=== PATIENT | male | born 1960 | race African-American/Black ===

== ENCOUNTER 2019-07-01 16:42 | Emergency (ER) | payer OTHER, SELFPAY ==
--- NOTE | 2019-07-01 18:19 | RAD ---
KUB INDICATION: Constipation COMPARISON: CT the chest, abdomen and pelvis dated February 23, 2015 FINDINGS: Bowel gas: Nonspecific but without overt appearance of obstruction. Lung bases: Clear. Additional findings: There are small phleboliths within the lower pelvis. Osseous structures: There is mild spondylosis of the lumbar spine IMPRESSION: 1. No acute abnormality.
[2019-07-01 18:38] LABS: #Eosinphils 0.2 thou/uL (0.0-0.7); #Lymphocytes 1.3 thou/uL (1.20-3.40); #Monocytes 0.5 thou/uL (0.11-0.59); #Neutrophils 2.6 thou/uL (1.40-6.50); %Basophils 0.4 % (0.0-1.0); %Eosinophils 4.6 % (0.0-10.0); %Lymphocytes 28.9 % (21.0-51.0); %Monocytes 9.8 % (0.0-10.0); %Neutrophils 56.4 % (42.0-75.0); Hemoglobin 16.4 g/dL (14.0-18.0); Mean Corpuscular HGB CONC 33.2 g/dL (32.0-36.0); Mean Corpuscular Hemoglobin 32.1 pg (27.0-31.0); Mean Corpuscular Volume 96.7 fL (78.0-98.0); Mean Platelet Volume 8.6 fL (7.4-10.4); Platelet Count 184 thou/uL (130-400); RBC Distribution Width 12.5 % (11.5-14.5); Red Blood Cell (RBC) Count 5.13 mill/uL (4.70-6.10); White Blood Cell (WBC) Count 4.6 thou/uL (4.8-10.8)
[2019-07-01 19:03] LABS: ALT (SGPT) 20 U/L (8-55); AST (SGOT) 28 U/L (5-34); Albumin 4.4 g/dL (3.5-5.0); Alkaline Phosphatase 108 U/L (40-110); Anion Gap 12 mmol/L (10-20); BUN (Urea Nitrogen) 9 mg/dL (8.4-25.7); Bilirubin, Total 0.8 mg/dL (0.2-1.2); Calc. Creatinine Clearance 0 mL/min (70-130); Calcium 9.3 mg/dL (7.8-10.44); Carbon Dioxide 26 mmol/L (22-29); Chloride 104 mmol/L (98-107); Estimated GFR-MDRD Greater than 90; Globulin 3.6 g/dL (2.4-3.5); Glucose 98 mg/dL (70-105); Potassium 3.7 mmol/L (3.5-5.1); Sodium 138 mmol/L (136-145)
--- NOTE | 2019-07-01 19:04 | RAD ---
CHEST ONE VIEW: 07/01/19 HISTORY: Chest pain. FINDINGS: The cardiac silhouette is magnified by projection. Pulmonary vasculature is unremarkable. Mediastinum is midline. No confluent air space consolidation or evidence of pneumothorax. shelter monitor leads overlie the chest. IMPRESSION: No active cardiopulmonary abnormalities are demonstrated. POS: BST
--- NOTE | 2019-07-01 19:35 | CT ---
CTA OF THE CHEST AND ABDOMEN UTILIZING AN AORTIC DISSECTION PROTOCOL AND 3-D REFORMATTED IMAGING INDICATION: Chest pain COMPARISON: CT the chest, abdomen and pelvis dated February 23, 2015. FINDINGS: Aorta: No acute aortic stenosis, occlusion or aneurysmal formation demonstrated. There is a small foc al dissection involving the distal abdominal aorta on image 154 of series 2. There is moderate calcification involving the aorta and abdominal pelvic vasculature. Central pulmonary artery: No central pulmonary embolus demonstrated. Additional thorax findings: Moderate emphysema Additional abdominal findings: There is a 1.8 cm cyst within superior pole left kidney. There is a ti ny cystic abnormality measuring 7 mm within the pancreatic head, adjacent to the main pancreatic duct that appears stable in size and may reflect a small IPMN lesion. There are mild vascular calcifi cations involving the proximal left renal artery. There is a variant origin of the inferior pancreatic duodenal artery from the main abdominal aorta. Osseous structures: No acute osseous abnormality. IMPRESSION: 1. No appreciable aortic stenosis, occlusion or aneurysmal formation demonstrated. 2. Small focal dissection involving the distal abdominal aorta. 3. Moderate emphysema 4. Small cystic abnormality pancreatic head is stable to comparison CT of the chest, abdomen and pelv is dated February 23, 2015. This lesion is suspicious for small IPMN type lesion. Recommend spot follow-up CT the abdomen in 6-12 months to document stability. 5. Left renal cyst
[2019-07-01] MEDS ORDERED: Nitroglycerin 2% Ointment 1 INCH/1 GM Packet ONE (19:47)
[2019-07-01] MEDS ORDERED: Nitroglycerin 0.4 MG TAB 1 EACH ONE (19:47)
[2019-07-01] MEDS ORDERED: Nitroglycerin 50 MG/250 ML BOT 250 ML ONE (20:37)
[2019-07-01] MEDS ORDERED: Esmolol 2,500 MG/250 ML 250 ML IVPB SCH (20:45)
[2019-07-01] MEDS ORDERED: Esmolol 2,500 MG/250 ML 250 ML ONE (20:49)
[2019-07-01] MEDS ORDERED: Morphine 4 MG/ML VIAL ONE (21:03)
[2019-07-01] MEDS ORDERED: niCARdipine 20MG In NaCl 20 MG/200 ML BAG ONE ×2 (21:21→22:52)
[2019-07-01 23:00] LABS: Troponin I Less than 0.010 ng/mL (< 0.028)
== END 2019-07-01 22:53 | disposition short-term general hospital (02) ==
LOC: ERS 16:42
DX: I71.02 Dissection of abdominal aorta (principal); I10 Essential (primary) hypertension; R07.9 Chest pain, unspecified; F17.210 Nicotine dependence, cigarettes, uncomplicated
CPT/HCPCS: 36415; 71045; 71275; 72191; 74018; 74175; 80053; 84484; 85025; 93005; 96365; 96366; 96367; 96374; J2270

== ENCOUNTER 2019-08-07 14:51 | Emergency (ER) | payer SELFPAY ==
--- NOTE | 2019-08-07 15:41 | RAD ---
XR Chest 1 View Portable HISTORY: Chest pain COMPARISON: 07/01/2019 FINDINGS: The heart size is normal. The lungs are well expanded without focal areas of consolidation, pneumothorax or pleural effusions. IMPRESSION: No radiographic evidence of acute cardiopulmonary process.
[2019-08-07 15:50] LABS: #Eosinphils 0.3 thou/uL (0.0-0.7); #Lymphocytes 1.6 thou/uL (1.20-3.40); #Monocytes 0.3 thou/uL (0.11-0.59); #Neutrophils 1.3 thou/uL (1.40-6.50); %Basophils 1.3 % (0.0-1.0); %Eosinophils 8.9 % (0.0-10.0); %Lymphocytes 45.4 % (21.0-51.0); %Neutrophils 35.5 % (42.0-75.0); Hemoglobin 14.7 g/dL (14.0-18.0); Mean Corpuscular HGB CONC 34.6 g/dL (32.0-36.0); Mean Corpuscular Volume 92.4 fL (78.0-98.0); Mean Platelet Volume 8.8 fL (7.4-10.4); Platelet Count 170 thou/uL (130-400); RBC Distribution Width 12.1 % (11.5-14.5); Red Blood Cell (RBC) Count 4.59 mill/uL (4.70-6.10); White Blood Cell (WBC) Count 3.6 thou/uL (4.8-10.8)
[2019-08-07 16:15] LABS: ALT (SGPT) 28 U/L (8-55); AST (SGOT) 26 U/L (5-34); Albumin 4.5 g/dL (3.5-5.0); Alkaline Phosphatase 111 U/L (40-110); Anion Gap 9 mmol/L (10-20); BUN (Urea Nitrogen) 13 mg/dL (8.4-25.7); Bilirubin, Total 0.6 mg/dL (0.2-1.2); Calc. Creatinine Clearance 0 mL/min (70-130); Calcium 9.7 mg/dL (7.8-10.44); Carbon Dioxide 28 mmol/L (22-29); Chloride 106 mmol/L (98-107); Estimated GFR-MDRD Greater than 90; Globulin 3.2 g/dL (2.4-3.5); Glucose 100 mg/dL (70-105); Lipase 30 U/L (8-78); Potassium 3.4 mmol/L (3.5-5.1); Protein, Total 7.7 g/dL (6.0-8.3); Sodium 140 mmol/L (136-145)
[2019-08-07] MEDS ORDERED: NIFEdipine XL 60 MG TAB PO SCH (17:30)
== END 2019-08-07 18:10 | disposition home or self-care (01) ==
LOC: ERS 14:51
DX: I10 Essential (primary) hypertension (principal); R51 Headache; F17.210 Nicotine dependence, cigarettes, uncomplicated
CPT/HCPCS: 71045; 80053; 83690; 84484; 85025; 93005

== ENCOUNTER 2020-09-19 14:02 | Observation (INO) | payer OTHER, SELFPAY ==
[2020-09-19 15:22] LABS: Acetaminophen Less than 6.0 mcg/mL (10.0-30.0); Alcohol Less than 10 mg/dL (Less than 10); Salicylate Less than 8.0 mg/dL (15.0-30.0)
[2020-09-19 15:23] LABS: Bilirubin Negative (Negative); Blood, Urine Negative (Negative); Clarity Clear (Clear); Glucose, Urine (Dipstick) Normal (Negative); Ketone, Urine Negative (Negative); Leukocyte Negative Leu/uL (Negative); Nitrite Negative (Negative); Protein, Urine (Dipstick) Negative (Neg-Trace); Specific Gravity, Urine 1.007 (1.002-1.036); Urobilinogen Normal mg/dL (Less than 2); pH, Urine 7.5 (5.0-9.0)
[2020-09-19 15:30] LABS: Amphetamine Not Detected (NotDetected); Barbiturates Screen Not Detected (NotDetected); Benzodiazepine Screen Not Detected (NotDetected); Cocaine Metabolite Screen Not Detected (NotDetected); Medtox Control Line Valid? VALID (VALID); Medtox Reader # READER 4; Methadone Not Detected (NotDetected); Methamphetamine Not Detected (NotDetected); Opiate Screen Detected (NotDetected); Oxycodone Screen Not Detected (NotDetected); Phencyclidine (PCP) Not Detected (NotDetected); THC/Cannabinoid Screen Not Detected (NotDetected); Tricyclic Screen Not Detected (NotDetected)
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
[2020-09-19] MEDS ORDERED: Nicotine 7 MG PATCH TD PRN (16:36)
[2020-09-19 18:20] LABS: Troponin I Less than 0.010 ng/mL (< 0.028)
[2020-09-19] MEDS ORDERED: hydrALAZINE 20 MG/ML VIAL SLOW IVP PRN (20:54)
[2020-09-19] MEDS ORDERED: Nitroglycerin 0.4 MG TAB (25 Tab Bottle) SL PRN (20:54)
[2020-09-19 21:05] VITALS: BMI 19.3
[2020-09-19] MEDS: Famotidine 20 MG TAB PO SCH (21:54)
[2020-09-19 22:02] LABS: Hemoglobin A1c 5.3 % (4.0-6.0)
[2020-09-20 05:54] LABS: Albumin 3.8 g/dL (3.4-4.8); Anion Gap 14 mmol/L (10-20); BUN (Urea Nitrogen) 11 mg/dL (8.4-25.7); Bilirubin, Total 0.5 mg/dL (0.2-1.2); Calc. Creatinine Clearance 89 mL/min (70-130); Calcium 9.2 mg/dL (7.8-10.44); Carbon Dioxide 23 mmol/L (23-31); Globulin 3.3 g/dL (2.4-3.5); Glucose 99 mg/dL (80-115); Potassium 3.3 mmol/L (3.5-5.1); Protein, Total 7.1 g/dL (5.8-8.1)
[2020-09-20 05:55] LABS: ALT (SGPT) 15 U/L (8-55); AST (SGOT) 20 U/L (5-34); Alkaline Phosphatase 91 U/L (40-110); Cardiac Risk 3.8 (Less than 4.5); Cholesterol 133 mg/dl (< 200 Desired); HDL Cholesterol 35 mg/dL (>60 Neg Risk); LDL Cholesterol, Calculated 79 mg/dL; Triglycerides 96 mg/dL (Less than 150)
[2020-09-20 06:04] LABS: Chloride 105 mmol/L (98-107); Sodium 139 mmol/L (136-145)
[2020-09-20 06:40] LABS: Hemoglobin 14.7 g/dL (14.0-18.0); Mean Corpuscular HGB CONC 33.3 g/dL (32.0-36.0); Mean Corpuscular Hemoglobin 31.8 pg (27.0-31.0); Mean Corpuscular Volume 95.5 fL (78.0-98.0); Mean Platelet Volume 8.6 fL (7.4-10.4); Platelet Count 258 thou/uL (130-400); RBC Distribution Width 12.4 % (11.5-14.5); Red Blood Cell (RBC) Count 4.62 mill/uL (4.70-6.10); White Blood Cell (WBC) Count 3.9 thou/uL (4.8-10.8)
[2020-09-20 06:53] LABS: Band 1 % (5-11); Eosinophils 9 % (0-10); Lymphocytes 38 % (21-51); MDiff Complete? YES; Monocytes 9 % (0-10); Neutrophil 43 % (42-75)
--- NOTE | 2020-09-20 07:01 | PDOC.FM ---
- Subjective Subjective: PT states neurological symptoms of facial droop and slurred speech completely resolved. No further CP either. Stress test this morning. Brain MRI today showed no acute infarct. - Objective MAR Reviewed: Yes Vital Signs & Weight: Vital Signs (12 hours) Temp Pulse Resp BP Pulse Ox 09/20/20 05:10 136/70 09/20/20 04:40 65 09/20/20 04:00 97.9 F 65 16 162/88 H 96 09/20/20 00:04 98.8 F 96 20 144/76 H 98 09/19/20 20:50 98.2 F 62 16 160/90 H 98 Weight Weight 63.049 kg I&O: 09/18/20 09/19/20 09/20/20 06:59 06:59 06:59 Intake Total 522 Balance 522 Result Diagrams: 09/20/20 05:00 09/20/20 05:00 Phys Exam - Physical Examination Constitutional: NAD HEENT: moist MMs, sclera anicteric Neck: supple, full ROM Respiratory: no wheezing, no rales, no rhonchi, clear to auscultation bilateral Cardiovascular: RRR, no significant murmur, no rub Gastrointestinal: soft, non-tender, no distention, positive bowel sounds Musculoskeletal: no edema, pulses present Neurological: non-focal, normal sensation, moves all 4 limbs CN II-XII grossly intact Psychiatric: normal affect, A&O x 3 Skin: normal turgor, cap refill <2 seconds Dx/Plan (1) TIA (transient ischemic attack) Code(s): G45.9 - TRANSIENT CEREBRAL ISCHEMIC ATTACK, UNSPECIFIED Status: Acute (2) Chest pain Code(s): R07.9 - CHEST PAIN, UNSPECIFIED Status: Acute (3) HTN (hypertension) Code(s): I10 - ESSENTIAL (PRIMARY) HYPERTENSION Status: Acute (4) History of aortic aneurysm Code(s): Z86.79 - PERSONAL HISTORY OF OTHER DISEASES OF THE CIRCULATORY SYSTEM Status: Acute - Plan Plan: 60 yo M here for chest pain/TIA rule out #Chest pain, ACS r/o -Heart score 4 -Trop negative x3, EKG with LVH -Will admit for tele monitoring, risk stratify, TTE, stress test today ordered -A1C 5.3, Tchol 133, LDL 97, HDL 35 #TIA r/o -Patient with slurred speech and left facial droop before arrival to ED, now resolved -CTH: neg for ICH -s/p 81mg ASA in ER, continue -No SBP >160 due to hx of aortic dissection -Will order risk stratification labs nml, MRI no acute infarct, with chronic white matter changes. #Tobacco abuse -Nicotine patch PRN, will encourage cessation #cHTN -With hx of aortic dissection, goal SBP <160 -Hold BB for stress test today #Opiate use -Pt denies drug use but UDS positive for opiates #Hx of aortic dissection -In Jul 2020, was transferred to [facility] -No chest pain at this time, CTA not indicated but consider if develops chest pain - added US of aorta added to echo. diet: HH, NPO at midnight for stress gi ppx: pepcid dvt ppx: lovenox los: <48 hours Dispo: tele obs for stress test Addendum - Attending - Attending Attestation Date/Time: 09/21/20 1642 I personally evaluated the patient and discussed the management with Dr. Arizmendi on 09/20/2020 I agree with the History, Examination, Assessment and Plan documented above with any addition or exceptions noted below- Patient denies any complaints. Afebrile VSS. A/P: 1) Possible TIA- symptoms resolved; MRI negative. Stable for discharge. Continue ASA, statin. 2) ACS r/o- stress negative. 3) HTN- continue BP meds and follow-up with PCP.
[2020-09-20] MEDS ORDERED: HYDROcodone/Acetaminophen 7.5/325 mg Tablet PO PRN (07:02)
[2020-09-20] MEDS ORDERED: FLU VACC QS2020-21(6MOS UP)/PF 60 MCG/0.5 ML SYRINGE IM ONE (09:00)
[2020-09-20] MEDS ORDERED: Enoxaparin Sodium 40 MG/0.4 ML SYRINGE SC SCH (09:00)
[2020-09-20] MEDS ORDERED: Amlodipine 10 MG TAB PO SCH (09:00)
[2020-09-20] MEDS ORDERED: Aspirin Chewable 81 MG TAB PO SCH (09:00)
[2020-09-20] MEDS ORDERED: Lisinopril 20 MG TAB PO SCH (09:00)
--- NOTE | 2020-09-20 09:29 | MRI ---
BRAIN MRI WITHOUT IV CONTRAST: HISTORY: TIA versus stroke, right-sided weakness. COMPARISON: 09/19/[address] FINDINGS: Sinus mucosal changes noted involving the maxillary sinuses, ethmoid sinuses, and sphenoid sinuses, a nd frontal sinuses, evidence for chronic pansinusitis. No focal mass or midline shift. No intra- or extraaxial hemorrhage. No evidence for acute infarct. IMPRESSION: Evidence for chronic pansinusitis. No significant acute intracranial process. No mass or bleed. Sc attered bilateral chronic white matter ischemic changes. No acute infarct. POS: RRE
[2020-09-20] MEDS ORDERED: Potassium Chloride 20 MEQ TAB PO SCH (09:45)
[2020-09-20] MEDS ORDERED: ADENOSINE 60 MG/20 ML VIAL ONE (09:46)
--- NOTE | 2020-09-20 11:16 | ULT ---
Abdominal aortic ultrasound: 09/20/2020 HISTORY: Abdominal aortic aneurysm TECHNIQUE: Multiplanar grayscale sonographic imaging of the abdominal aorta obtained. Provided imagin g includes Doppler interrogation with color flow and spectral analysis FINDINGS: Portions of the abdominal aorta are obscured by bowel gas. The proximal aspect of the abdom inal aorta measures up to 2.5 cm, the mid abdominal aorta measures up to 2.0 cm, and the distal abdominal aorta measures up to 1.4 cm. The common iliac artery on the right measures in the 8 mm rang e. The left common iliac artery measures in the 6 mm range. The distal aspect of the abdominal aorta near the bifurcation is obscured by bowel gas. Prior CT angiogram performed 07/01/2019 demonstr ated a small focal dissection of the distal abdominal aorta which could not be appreciated/assessed on this exam, possibly obscured by bowel gas. IMPRESSION: No sonographic evidence of abdominal aortic aneurysm. Please see above discussion.
[2020-09-20] MEDS: Famotidine 20 MG TAB PO SCH (11:46)
--- NOTE | 2020-09-20 11:56 | NM ---
Radionucleotide stress and rest myocardial perfusion scan with CT attenuation correction and SPECT im aging Left ventricular wall motion evaluation and ejection fraction HISTORY: Chest pain. FINDINGS: Adenosine protocol. Homogeneous uptake of radiotracer throughout the left ventricular myoca rdium. No focal perfusion defect or reversibility. QGS analysis of gated SPECT images shows no focal wall motion abnormalities. Ejection fraction calcul ated at 53%. IMPRESSION : No evidence of ischemia. Borderline LVEF 53%.
[2020-09-20 12:00] VITALS: TEMP 97.5
--- NOTE | 2020-09-20 14:42 | DIS ---
DATE OF ADMISSION: 09/19/2020 DATE OF DISCHARGE: 09/20/2020 RESIDENT: Brandee Arizmendi DO ADMITTING ATTENDING: Dr. Schuler. DISCHARGE ATTENDING: Dr. Ornelas. CONSULTS: None. PROCEDURES: Brain MRI, which showed no acute infarct or intracranial process. However, there was evidence for chronic pansinusitis. There was no mass or bleed. Scattered bilateral chronic white matter ischemic changes. Stress test nuclear medicine on 09/20, which resulted as no evidence of ischemia. Borderline left ventricular ejection fraction of 53%. Abdominal ultrasound to evaluate aorta on 09/20, which showed no sonographic evidence of abdominal aortic aneurysm. DIAGNOSES: 1. Chest pain. 2. Dysphagia with left facial droop, ruled out TIA. 3. Tobacco abuse. 4. Chronic hypertension. 5. Opiate use. 6. History of aortic dissection. DISCHARGE MEDICATIONS: 1. Atorvastatin 20 mg p.o. at bedtime. 2. Lisinopril 20 mg p.o. daily. 3. Amlodipine 10 mg p.o. daily. 4. Home Edison 7.5 daily. HISTORY OF PRESENT ILLNESS/HOSPITAL COURSE: Mr. Carreon is a 60-year-old male with a past medical history of hypertension and an infrarenal small dissection of aorta history that was treated through control of blood pressures back in June 2019 . He presented to the emergency department due to some chest pain and some slurred speech with left-sided facial droop. He was worked up for an ACS rule out as well as TIA rule out. The patient had a stress test, which showed no evidence of infarction, also an EF of 53%. The patient had a brain MRI, which was normal and had no acute ischemic or acute intracranial process. However, there was chronic pansinusitis and some chronic white matter ischemic changes. The echocardiogram was canceled as the brain MRI was negative and Echocardiogram Team at the hospital is overwhelmed due to COVID and unable to get him, as we need this hospital bed, he was encouraged to be discharged by our Case Management Team and if this is still necessary, we can do it outpatient. However, our Medicine Team did not deem this necessary as his brain MRI was normal and this was not likely a TIA or stroke. The patient was started on atorvastatin 20 daily. His total cholesterol was only 133 with an LDL of 79, HDL 55. A1c was 5.3. This was started just for a better cardiac history and history of aortic dissection. It is imperative to have good blood pressure control 30 days of lisinopril and 30 days of Norvasc. He states he does not have a PCP currently; however, we gave him the clinic number for [facility] and encouraged him to follow up in the next week and to establish with a provider at our clinic. DISPOSITION: Improved upon discharge. DISCHARGE INSTRUCTIONS: 1. Location: Home. 2. Diet: Heart healthy. 3. Activity: As tolerated. 4. Followup: Follow up with [facility] or primary care physician 1 week's time. Job ID: [id number] MTDD
[2020-09-20 16:38] VITALS: BP 158/76
--- NOTE | 2020-10-08 22:50 | EKG ---
Test Reason : Blood Pressure : / mmHG Vent. Rate : 073 BPM Atrial Rate : 073 BPM P-R Int : 164 ms QRS Dur : 086 ms QT Int : 400 ms P-R-T Axes : 000 041 052 degrees QTc Int : 440 ms Normal sinus rhythm Minimal voltage criteria for LVH, may be normal variant Borderline ECG Confirmed by CLARISSA AVILA, HUGO ([id number]), clinical editor SILVIA CAPONE ([id number]) on 10/08/2020 10:49:41 PM Referred By: Confirmed By:HUGO ROMO MD
== END 2020-09-20 16:20 | disposition home or self-care (01) ==
LOC: ERS 14:02 → ERHOLD 15:44 → 2SE 20:44
PROVIDERS: ADMIT Family Medicine; ATTEND Family Medicine
DX: R07.89 Other chest pain (principal); R29.810 Facial weakness; R47.81 Slurred speech; R13.10 Dysphagia, unspecified; F17.210 Nicotine dependence, cigarettes, uncomplicated; I10 Essential (primary) hypertension; J32.4 Chronic pansinusitis; Z86.79 Personal history of other diseases of the circulatory system; Z79.899 Other long term (current) drug therapy
CPT/HCPCS: 36415; 70551; 76706; 78452; 80053; 80061; 80306; 80307; 81003; 83036; 85007; 85027; 90471; 90662; 93005; 93017; 94760; 96372; 96374; A9500; G0008; G0378; J0153; J0360; J1650

== ENCOUNTER 2023-02-18 21:15 | Emergency (ER) | payer SELFPAY ==
[2023-02-18] MEDS ORDERED: hydrALAZINE 20 MG/ML VIAL ONE (21:47)
[2023-02-18 22:06] LABS: Bacteria/HPF None Seen HPF (None Seen); Bilirubin Negative (Negative); Blood, Urine Negative (Negative); CAUTI Indications for Culture Dysuria,urgency,freq; Clarity Clear (Clear); Glucose, Urine (Dipstick) Normal (Negative); Ketone, Urine Negative (Negative); Leukocyte Negative Leu/uL (Negative); Nitrite Negative (Negative); Protein, Urine (Dipstick) Negative (Neg-Trace); RBC/HPF None Seen HPF (0-3); Specific Gravity, Urine 1.002 (1.002-1.036); Squamous Epithelial None Seen HPF (0-3); Urobilinogen Normal mg/dL (Less than 2); WBC/HPF None Seen HPF (0-3); pH, Urine 5.5 (5.0-9.0)
[2023-02-18 22:09] LABS: Urine Culture Reflex No No
[2023-02-18 22:29] LABS: #Eosinphils 0.2 thou/uL (0.0-0.7); #Monocytes 0.4 thou/uL (0.11-0.59); #Neutrophils 1.1 thou/uL (1.40-6.50); %Eosinophils 4.1 % (0.0-10.0); %Lymphocytes 54.6 % (21.0-51.0); %Neutrophils 29.3 % (42.0-75.0); Hemoglobin 15.3 g/dL (14.0-18.0); Mean Corpuscular HGB CONC 34.9 g/dL (32.0-36.0); Mean Corpuscular Hemoglobin 31.3 pg (27.0-31.0); Mean Corpuscular Volume 89.8 fl (78.0-98.0); Mean Platelet Volume 10.6 fL (7.4-10.4); Platelet Count 247 10x3/uL (130-400); RBC Distribution Width 14.4 % (11.5-14.5); Red Blood Cell (RBC) Count 4.89 mill/uL (4.70-6.10); White Blood Cell (WBC) Count 3.9 10x3/uL (4.8-10.8)
[2023-02-18 22:54] LABS: ALT (SGPT) 19 U/L (8-55); AST (SGOT) 31 U/L (5-34); Albumin 4.1 g/dL (3.4-4.8); Alkaline Phosphatase 87 U/L (40-110); Anion Gap 12 mmol/L (10-20); BUN (Urea Nitrogen) 6 mg/dL (8.4-25.7); Bilirubin, Total 0.4 mg/dL (0.2-1.2); Calc. Creatinine Clearance 0 mL/min (70-130); Calcium 9.5 mg/dL (7.8-10.44); Carbon Dioxide 22 mmol/L (23-31); Chloride 106 mmol/L (98-107); Estimated GFR 101; Globulin 3.4 g/dL (2.4-3.5); Glucose 85 mg/dL (80-115); Potassium 3.7 mmol/L (3.5-5.1); Protein, Total 7.5 g/dL (5.8-8.1); Sodium 136 mmol/L (136-145)
== END 2023-02-18 23:25 | disposition home or self-care (01) ==
LOC: ERS 21:15
DX: I16.0 Hypertensive urgency (principal); T67.5XXA Heat exhaustion, unspecified, initial encounter; D72.819 Decreased white blood cell count, unspecified; I10 Essential (primary) hypertension
CPT/HCPCS: 36415; 80053; 81001; 84443; 84484; 85025; 93005; 96361; 96374; J0360

== ENCOUNTER 2024-09-07 09:07 | Outpatient (CLI) | payer MEDICARE | END 2024-09-07 09:08 | disposition home or self-care (01) | LOC: ULT 09:07 | PROVIDERS: ATTEND Nurse Practitioner Family | DX: Z13.6 Encounter for screening for cardiovascular disorders (principal); Z12.2 Encounter for screening for malignant neoplasm of respiratory organs; F17.210 Nicotine dependence, cigarettes, uncomplicated | CPT/HCPCS: 71271; 76775 ==

== ENCOUNTER 2025-06-09 16:11 | Emergency (ER) | payer MEDICARE | END 2025-06-09 18:52 | LOC: ERS 16:11 | DX: Z53.21 Procedure and treatment not carried out due to patient leaving prior to being seen by health care provider (principal) ==